=== PATIENT | male | born 1955 | race Caucasian/White ===

== ENCOUNTER 2019-09-13 07:19 | Day surgery (SDC) | payer OTHER, SELFPAY ==
[2019-09-13] VITALS (11 sets, daily range): BP systolic 111–185; BP diastolic 59–86; PULSE 56–89; RESP 8–19; TEMP 36.4–36.7; O2SAT 94–100; BMI 35.9
--- NOTE | 2019-09-13 07:43 | DI.RAD.S_ITS ---
PROCEDURE: XR FINGER LT MIN 2V INDICATIONS: crush injury TECHNIQUE: AP hand, 2 views of the second finger(s) acquired. COMPARISON: None. FINDINGS: Bones: Minimally displaced fracture involving the second distal phalangeal tuft is seen. Cortical irregularity involving ulnar aspect of second distal phalangeal base is also noted, and is concerning for age indeterminant injury. No other fracture or dislocation. No suspicious bony lesions. Soft tissues: Large soft tissue defect involving the tip of the second digit is seen. No radiopaque foreign body is seen. IMPRESSION: Large soft tissue defect involving tip of second digit with minimally displaced second distal phalangeal tuft fracture. Age indeterminate injury involving ulnar aspect of second distal phalangeal base. No radiopaque foreign body is seen. Dictated by: Zane Barkley M.D. on 09/13/2019 at 8:22 Approved by: Zane Barkley M.D. on 09/13/2019 at 8:28
--- NOTE | 2019-09-13 08:06 | ED_ITS ---
HPI - Wound/Laceration General Chief Complaint: Wound/Laceration Stated Complaint: smashed left hand point finger Time Seen by Provider: 09/13/19 07:36 Mode of arrival: Ambulatory History of Present Illness HPI narrative: 64-year-old gentleman who got his left index finger caught within a trailer hitch this morning while at work. Obvious bleeding, deformity. Bandage was applied and he presents for further evaluation. He notes that it is not throbbing or hurting and actually feels a bit ?numb? at this time. He is right handed. Additional medical problems include hyperlipidemia and ASCVD. Related Data Home Medications Medication Instructions Recorded Confirmed aspirin 325 mg PO BEDTIME 09/13/19 09/13/19 tamsulosin 0.8 mg PO BEDTIME 09/13/19 09/13/19 Allergies Allergy/AdvReac Type Severity Reaction Status Date / Time oxycodone [From Percodan] AdvReac Severe Headache Verified 09/13/19 10:01 Review of Systems Review of Systems Narrative: Denies ? fever ? cough ? cold ? chills ? chest pain ? dyspnea ? orthopnea ? wheezing ? abdominal pain ? change to bowel or bladder habits ? nausea vomiting ? skin changes ? rashes Patient History Medical History (Updated 09/13/19 @ 10:01 by Fouzia House RN) ASCVD (arteriosclerotic cardiovascular disease) (Acute ~2010) CVA (cerebral vascular accident) (Acute) Hyperlipidemia (Acute) Social History Smoking Status: Never smoker Smoking Status: Never smoker Exam Narrative Exam Narrative: General: Healthy appearing, in no acute distress. Able to give a complete and coherent history. Well-nourished well-developed HEENT: Moist mucous membranes, normal sclera with reactive pupils, Neck: No JVD, supple Respiratory: Lungs are clear to auscultation, no wheezing no rales no rhonchi. Full and symmetrical air movement Cardiac: Regular rate and rhythm no murmurs no bruits Abdomen: Soft, nontender Skin: Warm and dry, no rashes Neurologic: Grossly neurologically intact with no obvious asymmetries or abnormalities Psych: Cooperative, appropriate insight and affect Extremities: Left index finger with injury to the distal phalanx. He is neurovascularly intact and bleeding is controlled. after a digital block is done, wound is explored. complete degloving injury of finger to at least DIP joint. Initial Vital Signs Initial Vital Signs: Vital Signs Temperature 97.9 F 09/13/19 07:31 Pulse Rate 57 L 09/13/19 07:31 Respiratory Rate 18 09/13/19 07:31 Blood Pressure 185/86 H 09/13/19 07:31 Pulse Oximetry 97 09/13/19 07:31 Procedures Nerve Block Nerve Block 1: Local Anesthetic: lidocaine 1% Amount of anesthesia used (mL): 8 Side: left Nerve Blocks: digital (left index finger) Patient Tolerated Procedure: No complications Additional Comments: adequate anesthesia Course Orders Ordered: ED Orders 09/13/19 07:43 XR finger LT min 2V Stat Discontinued Medications Diphtheria/Tetanus/Acell Pertussis (Adacel) 0.5 ml IM .ONCE ONE Stop: 09/13/19 08:59 Last Admin: 09/13/19 09:10 Dose: 0.5 ml Documented by: NYA Cefazolin Sodium 3 gm/ Sodium (Chloride) 100 mls @ 200 mls/hr IV NOW ONE Stop: 09/13/19 09:20 Last Admin: 09/13/19 10:07 Dose: 200 mls/hr Documented by: NINA Lidocaine/Sodium Bicarbonate (Buffered Lidocaine 10 Ml Syr) 10 ml INJ NOW ONE Stop: 09/13/19 08:32 Last Admin: 09/13/19 09:00 Dose: 10 ml Documented by: YNA Vital Signs Vital signs: Vital Signs - 8 hr 09/13/19 07:31 Temperature 97.9 F Pulse Rate 57 L Respiratory Rate 18 Blood Pressure 185/86 H Pulse Oximetry 97 MDM - Wound/Laceration Medical Records Attestation: I reviewed the patient's medical records. Imaging Data finger xray: Attestation: I personally reviewed and interpreted this imaging study as follows: Radiologist's Impression: IMPRESSION: Large soft tissue defect involving tip of second digit with minimally displaced second distal phalangeal tuft fracture. Age indeterminate injury involving ulnar aspect of second distal phalangeal base. No radiopaque foreign body is seen. Dictated by: Zane Barkley M.D. on 09/13/2019 at 8:22 ECG Data Attestation: I personally reviewed and interpreted this ECG as follows: Interpretation: Sinus Chinmay at a rate of 55 Right bundle branch block Nonspecific ST T wave changes MDM Narrative Medical decision making narrative: degloving injury of distal L index finger. Distal phlanx entirely exposed (small tuft fracture) and not enough soft tissue to cover wound. 9:08 gudelia Curtis. Will take to the OR at [facility] for an amputation revision. Will go ahead and add in IV, 1st dose of IV Keflex and and EKG given the probable cardiac history Discharge Plan Departure Patient Disposition: Admitted as Observation Clinical Impression: Degloving injury of finger Qualifiers: Encounter type: initial encounter Qualified Code(s): S61.209A - Unspecified open wound of unspecified finger without damage to nail, initial encounter Admit Date/Time: 09/13/19 09:47 Admit Provider: Surinder Norton
[2019-09-13] MEDS: LIDO 1%/SOD BICARB 8.4% (10ML) 10 ML SYRINGE INJ (09:00)
[2019-09-13] MEDS: TET,DIPH,PERTUSS(ACELL),VAC/PF 0.5 ML SYRINGE IM (09:10)
[2019-09-13] MEDS: CEFAZOLIN VIAL 3 GM in SODIUM CHLORIDE 0.9% 100 ML 200 ML IV (10:07)
[2019-09-13] MEDS: LACTATED RINGERS 1,000 ML 42 ML IV (11:39)
[2019-09-13] MEDS: METOCLOPRAMIDE 10 MG/2 ML INJ IV (11:39)
[2019-09-13] MEDS: FAMOTIDINE 20 MG/50 ML PIGGYBACK 200 MG IV (11:39)
--- NOTE | 2019-09-13 12:02 | PM.HP.1 ---
History of Present Illness History of Present Illness Date Patient Seen: 09/13/19 Time Patient Seen: 12:02 Date of Onset of Symptoms: 09/13/19 Chief complaint: smashed left hand point finger Narrative: 64-year-old male presented to the emergency room today after smashing his left index finger in a trailer hitch. Assessment was degloving injury left index finger and consultation requested. No prior injuries to the index finger. Patient History Medical History ASCVD (arteriosclerotic cardiovascular disease) (Acute ~2010) CVA (cerebral vascular accident) (Acute) History of esophageal dilatation (Acute) Hyperlipidemia (Acute) Family & Social History Social History: Prior Living Arrangements RV Safety & Behavioral: Feels Safe in Current Yes Environment Been Physically Hurt or No Threatened By a Person Tobacco & Substance use: Tobacco type smokeless tobacco Smoking Status Former smoker alcohol intake current alcohol intake frequency a few times a week Substance Use Type does not use Meds Home Medications and Allergies Home Medications Medication Instructions Recorded Confirmed Type aspirin 325 mg PO BEDTIME 09/13/19 09/13/19 History tamsulosin 0.8 mg PO BEDTIME 09/13/19 09/13/19 History Allergies Allergy/AdvReac Type Severity Reaction Status Date / Time oxycodone [From Percodan] AdvReac Severe Headache Verified 09/13/19 11:04 Review of Systems Review of Systems Narrative: History of hypertension and BPH. ROS: Yes All systems reviewed with the patient and are negative except as otherwise documented Exam Vital Signs (past 8 hours): - 09/13/19 07:31 09/13/19 09:50 09/13/19 10:45 Temperature 97.9 F 98.1 F Pulse Rate 57 L 57 L 57 L Respiratory Rate 18 18 17 Blood Pressure 185/86 H Blood Pressure [Right Arm] 174/83 H 171/78 H Pulse Oximetry 97 100 99 09/13/19 11:07 Temperature 97.9 F Pulse Rate 56 L Respiratory Rate 12 Blood Pressure 164/83 H Blood Pressure [Right Arm] Pulse Oximetry 100 Oxygen Delivery Method Room Air Narrative Exam Narrative: Awake alert oriented and conversant in no obvious distress. HEENT normocephalic atraumatic Lungs are clear to auscultation Heart regular rate and rhythm Abdomen benign Extremities benign with the exception of left upper extremity which is held elevated and the index and middle fingers are bandaged. Bandage not taken off for further assessment but report of injury by both the patient and the emergency room physician are degloving injury at roughly the DIP joint level with exposed distal phalangeal bone. No reported injury more proximally and no reported injury to the middle finger Assessment & Plan Assessment & Plan narrative: 64-year-old male with traumatic degloving injury left index finger. We discussed the nature of condition, differential diagnosis, prognosis, and options. Recommend wound assessment in the operating room under anesthetic and repair as as able and indicated preserving as much of the finger as possible, but likely revision amputation at or proximal to the DIP joint. Patient understands and agrees and gives informed consent.
--- NOTE | 2019-09-13 12:06 | PM.PREOP ---
Pre-operative Note Interval Note History & Physical reviewed/Exam performed by Physician: Yes Changes to H&P: No
[2019-09-13] MEDS: CEFAZOLIN 1 GM/50 ML FROZ.PIGGY IV (12:56)
--- NOTE | 2019-09-13 13:06 | SUR.OPER ---
Supine on padded OR bed, head on pillow, right arm secured on padded arm board at <90 degrees abduction, left arm prepped in field on hand table, legs uncrossed, safety belt at thigh, tape over blanket over lower legs.
--- NOTE | 2019-09-13 13:27 | P.OP_ITS ---
Operative Date/Time/Diagnoses Date of procedure: 09/13/19 Time of procedure: 13:27 Pre-op diagnosis: Left index finger degloving injury, traumatic amputation. Post-op diagnosis: same Procedure & Clinicians Procedure: Irrigation and debridement, revision amputation left index finger Same procedure as scheduled: Yes Indications: 64-year-old male status post traumatic degloving injury left index finger when his finger got caught in a trailer hitch today. Present to the emergency room where he was initially seen and evaluated and brought to the operating room for definitive treatment. Patient understands that definitive treatment and closure will consist of likely amputation at the DIP joint level. He understands, agrees, and gives informed consent Surgeon: Surinder Norton Click Yes if Unassisted: Yes Anesthesia Type: General Operative Notes Closure Type: primary Specimen(s): none sent Estimated Blood Loss (mL): 10 Blood products transfused: none Tourniquet time (min): 15 Procedure in detail: After administration of IV antibiotics and satisfactory induction of general anesthetic a tourniquet placed high on the left arm and the left upper extremities prepped and draped in the usual sterile fashion. Tourniquet inflated to 250 mm of mercury. Traumatic amputation assessed. The distal phalanx was intact as was the DIP joint however completely exposed with the exception of a flap of skin over the radial side of the finger extending about correction up the length of the distal phalanx longitudinal extension of the laceration dorsally and complete loss the skin distally and ulnarly. After assessment of the viability of the skin flaps and determination of the options, the distal phalanx was excised. The wound was copiously irrigated and the radial skin flap was brought over ulnarly and sutured with 4 O nylon. This resulted in satisfactory distal coverage the remaining longitudinal laceration on the volar aspect of the hand was further repaired with 4 O nylon, as was the remainder of the dorsal repair of the radial flap. The tourniquet was deflated and the skin flap appeared viable with excellent capillary refill. There was no excess bleeding. The wound was then dressed with Xeroform, 4x4s and a well- padded volar splint. Anesthetic terminated the patient taken to postanesthetic recovery in satisfactory condition. Complications: none Post-operative Condition: stable Disposition: PACU Plan for aftercare: Discharge home today follow-up in 7 days for wound check suture removal likely in 10-14 days.
--- NOTE | 2019-09-13 14:35 | SUR.PHASEII ---
Questions answered, Stable on feet, ice pack given, sips of water given. Very pleasant, appreciative of care.
== END 2019-09-13 14:38 | disposition home or self-care (01) ==
LOC: ED 09:36 → AC 11:26 → OR 14:07
PROVIDERS: Emergency Provider Emergency Medicine; Referring Provider Emergency Medicine; Visit Provider Orthopaedic Surgery
PROC: (CPT 26952; principal; 2019-09-13 11:15)
DX: S68.621A Partial traumatic transphalangeal amputation of left index finger, initial encounter (principal); V99.XXXA Unspecified transport accident, initial encounter; Y93.89 Activity, other specified; Y92.63 Factory as the place of occurrence of the external cause; E78.5 Hyperlipidemia, unspecified; Z86.73 Personal history of transient ischemic attack (TIA), and cerebral infarction without residual deficits; I25.10 Atherosclerotic heart disease of native coronary artery without angina pectoris
CPT/HCPCS: 26952; 36415; 73140; 93005; 99285; 90715; J0690; J1100; J2250; J2405; J2704; J2765; J3010